=== PATIENT | male | born 1965 | race African-American/Black ===

== ENCOUNTER 2020-07-12 19:00 | Emergency (ER) | payer MEDICARE, OTHER ==
[~2020-07-12] VITALS: Ht 182.9 cm; Wt 90.0 kg
[2020-07-12] MEDS ORDERED: KETOROLAC 60MG/2ML VIAL IM STA (19:34)
[2020-07-12 20:35] VITALS: BP 150/79
== END 2020-07-12 20:37 | disposition home or self-care (01) ==
LOC: ER 19:00
DX: S16.1XXA Strain of muscle, fascia and tendon at neck level, initial encounter (principal); V49.49XA Driver injured in collision with other motor vehicles in traffic accident, initial encounter; Y93.89 Activity, other specified; Y92.89 Other specified places as the place of occurrence of the external cause; Y99.8 Other external cause status
CPT/HCPCS: 71046; 73030; 96372; 99284; J1885